=== PATIENT | female | born 1975 | race Two or more races ===

== ENCOUNTER 2020-10-13 07:58 | Day surgery (SDC) | payer OTHER ==
[~2020-10-13 07:58] MED LIST: VASOFLEX PO; [UNRECOGNIZED DRUG - OTHER] RECTAL
== END 2020-10-14 08:20 | disposition home or self-care (01) ==
LOC: CIR.AMB 07:58
PROVIDERS: ATTEND Surgery
DX: K64.8 Other hemorrhoids (principal); Z20.828 Contact with and (suspected) exposure to other viral communicable diseases